=== PATIENT | female | born 1960 | race Caucasian/White ===

== ENCOUNTER → 2016-07-25 | Outpatient (CLI) | payer OTHER ==
[2016-07-25 13:29] LABS: ESTIMATED AVERAGE GLUCOSE 123 mg/dl; HA1C FLAG Normal (Normal)
[2016-07-25 13:32] LABS: BLOOD UREA NITROGEN 16 mg/dl (7-18); CALCIUM 9.6 mg/dl (8.5-10.1); CARBON DIOXIDE 30 mmol/L (21-32); CHLORIDE 104 mmol/L (98-107); CREATININE 0.96 mg/dl (0.60-1.20); GLUCOSE 102 mg/dl (70-99); POTASSIUM 3.8 mmol/L (3.5-5.1); SODIUM 141 mmol/L (136-145)
[2016-07-25 13:36] LABS: CHOLESTEROL 145 mg/dl (0-200); CHOLESTEROL/HDL RATIO 4.3; HDL CHOLESTEROL 34 mg/dl; LDL CHOLESTEROL CALCULATED 88 mg/dl; TRIGLYCERIDES 113 mg/dl (0-150); VERY LOW DENSITY LIPOPROT CALC 23 mg/dl
== END | disposition home or self-care (01) ==
LOC: C.LABPVFM 09:15
PROVIDERS: ATTEND Nurse Practitioner
DX: E78.5 Hyperlipidemia, unspecified (principal); R73.01 Impaired fasting glucose

== ENCOUNTER → 2016-08-03 | Outpatient (CLI) | payer OTHER ==
--- NOTE | 2016-08-03 13:04 | MAMMOGRAPHY REPORT ---
BILATERAL DIGITAL SCREENING MAMMOGRAM TOMOSYNTHESIS WITH CAD: 08/03/2016 CLINICAL HISTORY: Routine screening. Patient has no complaints. TECHNIQUE: Breast tomosynthesis in addition to standard 2D mammography was performed. Current study was also evaluated with a Computer Aided Detection (CAD) system. COMPARISON: Comparison is made to exams dated: 08/06/2015 mammogram, 08/02/2015 mammogram, 07/28/2014 mammogram, 07/25/2013 mammogram, 07/19/2012 mammogram, and 07/14/2011 mammogram - [facility]. BREAST COMPOSITION: There are scattered areas of fibroglandular density in both breasts. FINDINGS: No suspicious masses, calcifications, or areas of architectural distortion are noted in e ither breast. There has been no significant interval change compared to prior exams. IMPRESSION: ACR BI-RADS CATEGORY 1: NEGATIVE There is no mammographic evidence of malignancy. A 1 year screening mammogram is recommended. The p atient will receive written notification of the results. Approximately 10% of breast cancers are not detected with mammography. A negative mammographic repor t should not delay biopsy if a clinically suggestive mass is present. Amaya Summers M.D. ah/:08/03/2016 09:04:53 Signal Tester: Kailyn GAVIN(R)(M), [facility] letter sent: Normal 1/2 BI-RADS Code: ACR BI-RADS Category 1: Negative
== END | disposition home or self-care (01) ==
LOC: C.MAMM 08:24
PROVIDERS: ATTEND Obstetrics & Gynecology
DX: Z12.31 Encounter for screening mammogram for malignant neoplasm of breast (principal)

== ENCOUNTER → 2016-11-29 | Outpatient (CLI) | payer OTHER | END | disposition home or self-care (01) | LOC: C.LABPVFM 10:06 | PROVIDERS: ATTEND Family Medicine | DX: R39.9 Unspecified symptoms and signs involving the genitourinary system (principal) ==

== ENCOUNTER → 2016-12-29 | Outpatient (CLI) | payer OTHER | END | disposition home or self-care (01) | LOC: C.PAPS 11:55 | PROVIDERS: ATTEND Obstetrics & Gynecology | DX: Z12.4 Encounter for screening for malignant neoplasm of cervix (principal) ==

== ENCOUNTER → 2017-01-17 | Outpatient (CLI) | payer OTHER | END | disposition home or self-care (01) | LOC: C.LABSPEC 10:20 | PROVIDERS: ATTEND Obstetrics & Gynecology | DX: Z12.11 Encounter for screening for malignant neoplasm of colon (principal) ==

== ENCOUNTER → 2017-08-06 | Outpatient (CLI) | payer OTHER ==
[2017-08-06 13:14] LABS: BLOOD UREA NITROGEN 17 mg/dl (7-18); CALCIUM 9.6 mg/dl (8.5-10.1); CARBON DIOXIDE 31 mmol/L (21-32); CREATININE 1.01 mg/dl (0.60-1.20); GLUCOSE 107 mg/dl (70-99); POTASSIUM 3.7 mmol/L (3.5-5.1); SODIUM 139 mmol/L (136-145)
[2017-08-06 13:17] LABS: CHOLESTEROL 166 mg/dl (0-200); LDL CHOLESTEROL CALCULATED 102 mg/dl
== END | disposition home or self-care (01) ==
LOC: C.LABPVFM 09:19
PROVIDERS: ATTEND Nurse Practitioner
DX: E78.5 Hyperlipidemia, unspecified (principal); R73.01 Impaired fasting glucose

== ENCOUNTER → 2017-08-20 | Outpatient (CLI) | payer OTHER ==
--- NOTE | 2017-08-21 15:14 | MAMMOGRAPHY REPORT ---
BILATERAL DIGITAL SCREENING MAMMOGRAM TOMOSYNTHESIS WITH CAD: 08/20/2017 CLINICAL HISTORY: Routine screening. TECHNIQUE: Breast tomosynthesis in addition to standard 2D mammography was performed. Current study was also evaluated with a Computer Aided Detection (CAD) system. COMPARISON: Comparison is made to exams dated: 08/03/2016 mammogram, 08/02/2015 mammogram, 07/28/2014 m ammogram, 07/25/2013 mammogram, 07/19/2012 mammogram, and 07/14/2011 mammogram - [facility]. BREAST COMPOSITION: There are scattered areas of fibroglandular density in both breasts. FINDINGS: There is fluctuating nodularity bilaterally, most likely representing fluctuating cysts. S cattered benign punctate and rim calcifications bilaterally. No suspicious mass, architectural disto rtion or cluster of microcalcifications is seen. IMPRESSION: ACR BI-RADS CATEGORY 1: NEGATIVE There is no mammographic evidence of malignancy. A 1 year screening mammogram is recommended. The pa tient will receive written notification of the results. Approximately 10% of breast cancers are not detected with mammography. A negative mammographic report should not delay biopsy if a clinically suggestive mass is present. Mallory Hickey M.D. ay/:08/20/2017 16:54:31 Educational Aide: Kailyn GAVIN(R)(Sonia), [facility] letter sent: Normal 1/2 BI-RADS Code: ACR BI-RADS Category 1: Negative
== END | disposition home or self-care (01) ==
LOC: C.MAMM 08:31
PROVIDERS: ATTEND Obstetrics & Gynecology
DX: Z12.31 Encounter for screening mammogram for malignant neoplasm of breast (principal)

== ENCOUNTER 2020-10-26 11:13 | Observation (INO) ==
[2020-10-26] MEDS ORDERED: ONDANSETRON INJ 2 MG/ML 2 ML VIAL IV STA (12:00)
--- NOTE | 2020-10-26 12:04 | Emergency Department Note ---
Impression & Plan Abdominal pain, RUQ ED Provider Note INFORMANT: Patient ED PROVIDER(S): Osbaldo Cunningham MD CHIEF COMPLAINT: Right upper quadrant abdominal pain PLAN: Disposition: Admitted to the OR Condition: Good Outpatient prescription management: none Referral: None MEDICAL DECISION MAKING: Patient presented with right upper quadrant abdominal pain. Examination was concerning for a biliary source. The patient was treated with IV Dilaudid and Zofran. Her blood work revealed a leukocytosis and mild elevation of her bilirubin. Ultrasound imaging did show some sludge but no convincing evidence of cholecystitis. CT imaging was performed. The patient does have sludge in the gallbladder. No other pathology was noted. The patient was reexamined. She still having right upper quadrant abdominal pain rating a 5 out of 10 even after the Dilaudid. At this point general surgery was consulted. The patient was evaluated in the ER and was felt that further management surgically was necessary. The patient will be taken to the operating room for further treatment. Triage Nursing notes reviewed and agree them. Vital Signs: reviewed and remarkable for no significant abnormalities Differential diagnosis: Biliary pathology, ovarian cyst, ovarian torsion, TOA, PID, infections, diverticulitis, UTI, obstruction, mesenteric ischemia, aortic pathology, inflammatory bowel disease, renal colic, PUD, pancreatitis, hernia, volvulus, constipation, as well as other pathologies. Diagnostics interpreted by me: ECG: Rate: 81 Rhythm:Normal sinus [place]:Normal QRS:Normal ST segements:No elevation or depression Other:No PACs or PVCs Cardiac Monitoring: Cardiac monitoring ordered by me: The patient was placed on continuous cardiac monitoring and observed. It revealed a normal sinus rhythm at 82 beats per minute without ectopy or evidence of dysrhythmia. Imaging studies: Ultrasound of the gallbladder reveals sludge but no convincing evidence of cholecystitis. CT imaging of the abdomen pelvis reveals a large sludge but no other acute pa thology in the right upper quadrant. Renal stone noted. Pulmonary nodule noted however patient is low risk. Radiology recommended no additional follow-up. Patient was informed. HPI: The patient is a 60 year old female who presents to the Emergency Room with complaints of RUQ, sharp pain. This started yesterday and is worsening this morning. The patient also notes the following associated symptoms, nausea. The patient has found no relieving factors. Current pain is rated as 5/10. Pt denies LOC, headache, fevers, chills, diaphoresis, visual changes, neck pain, chest pain, breathing difficulties, vomiting, back pain, melena, hematochezia, urinary symptoms, numbness, weakness, lymphadenopathy, rash, or other complaints. ROS: See above HPI for pertinent positives & negatives. A total of 10 systems reviewed and were otherwise negative. PAST MEDICAL HISTORY:See Below , high cholesterol PAST SURGICAL HISTORY:See Below,appy FAMILY HISTORY:See Below SOCIAL HISTORY:See Below, HOME MEDICATIONS:See Below ALLERGIES:See Below VITALS:See Below PHYSICAL EXAMINATION: GENERAL: Awake, alert, uncomfortable-appearing, in no distress HENT: Normocephalic, atraumatic. Oropharynx unremarkable. EYES: Normal conjunctiva. Sclera non-icteric. NECK: Inspection normal. Non-tender. Supple. No nuchal rigidity. FROM. No masses. RESPIRATORY: Clear to auscultation. No wheezes. No rales. Normal respiratory effort. CARDIAC: Normal rate. Normal rhythm. No murmurs. No rubs. Extremities warm and well perfused. Pulses equal. No JVD. GI: Soft, non-distended. RUQ tenderness to palpation. No rebound or guarding. No masses. RECTAL: Deferred. MUSCULOSKELETAL: Atraumatic. Chest examination reveals no tenderness. The back is symmetrical on inspection without obvious abnormality. There is no CVA tenderness to palpation. No joint edema. LOWER EXTREMITIES: Calves are equal size bilaterally and non-tender. No edema. No discoloration. NEURO: Normal sensorium. No sensory or motor deficits noted. SKIN: No rash or jaundice noted. Osbaldo Cunningham MD Past Med/Surg History Medical History Nonrheumatic mitral valve insufficiency Surgical History H/O laparoscopy History of hysterectomy, supracervical Hx of salpingo-oophorectomy, bilateral S/P appendectomy Family History Other Coronary heart disease Denies family history of Ovarian cancer Prostate cancer Myocardial infarction Breast cancer Colorectal cancer Social History Smoking Status: Never smoker Hx Alcohol Use: No Hx Substance Use: No Preferred Language: Tunisian marital status: Current Living Situation: Spouse current occupational status: employed How many Children do You have: 2 Feels Safe at Home: Yes Childhood Exposure to Second-Hand Smoke: No Dental Care, Regularly: Yes Physical Activity Frequency: 3-4 Times per Week Seatbelt Use: always Sunscreen Use: Yes Allergies Allergies Allergy/AdvReac Type Severity Reaction Status Date / Time No Known Allergies Allergy Verified 10/26/20 14:11 Home Meds Home Medications Medication Instructions Recorded Confirmed calcium citrate 500 mg (2,376 mg) 500 mg PO DAILY 07/30/19 10/26/20 effervescent tablet multivitamin 1 tab PO DAILY 07/30/19 10/26/20 omega-3 fatty acids 1,000 mg 1,000 mg PO DAILY 07/30/19 10/26/20 capsule Previous Rx's Medication Instructions Recorded atorvastatin 40 mg tablet 40 mg PO DAILY #30 tab 03/04/20 Results & Data (ED) Vital Signs Vital Signs - 24 hr 10/26/20 11:21 10/26/20 11:51 10/26/20 12:13 Temperature 37.0 C Temperature Source Temporal Artery Scan Pulse Rate 79 Pulse Rate [Right] 85 Pulse Rate from SpO2 Sensor Pulse Rhythm [Right] Regular Pulse Strength [Right] Normal Respiratory Rate 14 18 Respiratory Effort / Characteristics Non-Labored Spontaneous Non-Labored Respiratory Depth Normal Normal Blood Pressure 196/74 H Blood Pressure [Right Arm] 187/68 H Blood Pressure Mean 114 Blood Pressure Mean [Right Arm] 107 Blood Pressure Position [Right Arm] Lying Pulse Oximetry 97 98 96 Oxygen Delivery Method Room Air Room Air Room Air Sepsis New/Unexplained Change in Mental Status N/A Sepsis Action Taken by Nursing No Action Required 10/26/20 12:30 10/26/20 13:08 10/26/20 13:30 Temperature Temperature Source Pulse Rate 75 83 83 Pulse Rate [Right] Pulse Rate from SpO2 Sensor 76 82 84 Pulse Rhythm [Right] Pulse Strength [Right] Respiratory Rate 21 16 21 Respiratory Effort / Characteristics Respiratory Depth Blood Pressure 181/87 H 169/106 H 175/68 H Blood Pressure [Right Arm] Blood Pressure Mean 118 127 103 Blood Pressure Mean [Right Arm] Blood Pressure Position [Right Arm] Pulse Oximetry 95 96 94 Oxygen Delivery Method Sepsis New/Unexplained Change in Mental Status Sepsis Action Taken by Nursing 10/26/20 14:00 10/26/20 14:30 10/26/20 15:00 Temperature Temperature Source Pulse Rate 79 74 82 Pulse Rate [Right] Pulse Rate from SpO2 Sensor 81 78 83 Pulse Rhythm [Right] Pulse Strength [Right] Respiratory Rate 19 13 14 Respiratory Effort / Characteristics Respiratory Depth Blood Pressure 199/70 H 179/63 H 187/69 H Blood Pressure [Right Arm] Blood Pressure Mean 113 101 108 Blood Pressure Mean [Right Arm] Blood Pressure Position [Right Arm] Pulse Oximetry 98 97 97 Oxygen Delivery Method Sepsis New/Unexplained Change in Mental Status Sepsis Action Taken by Nursing Laboratory Data Result diagrams: 10/26/20 12:07 10/26/20 13:20 Lab Results 10/26/20 10/26/20 10/26/20 Range/Units 12:07 12:07 12:15 WBC 13.05 H (4.8-10.8) K/uL RBC 5.60 H (4.2-5.4) M/uL Hgb 15.2 (12.0-16.0) g/dL Hct 46.1 (37-47) % MCV 82.3 (80-100) fL MCH 27.1 (25-34) pg MCHC 33.0 (32-36) g/dL RDW Std Deviation 39.9 (36.4-46.3) fL RDW Coeff of Nikolay 13.2 (11.5-14.5) % Plt Count 282 (130-400) K/uL MPV 9.4 (7.4-10.4) fL Immature Gran % (Auto) 0.5 % Neut % (Auto) 73.1 % Lymph % (Auto) 14.2 % [place] % (Auto) 11.0 % Eos % (Auto) 1.0 % Baso % (Auto) 0.2 % Neut # (Auto) 9.55 H (1.4-6.5) K/uL Lymph # (Auto) 1.85 (1.2-3.4) K/uL [place] # (Auto) 1.43 H (0.11-0.59) K/uL Eos # (Auto) 0.13 (0-0.5) K/uL Baso # (Auto) 0.03 (0-0.2) K/uL Immature Gran # (Auto) 0.06 H (0.00-0.02) K/uL Sodium 137 (136-145) mmol/L Potassium (3.5-5.1) mmol/L Chloride 104 (98-107) mmol/L Carbon Dioxide 29 (21-32) mmol/L Anion Gap 4.0 (3-11) BUN 15 (7-18) mg/dl Creatinine 0.90 (0.6-1.2) mg/dl Est Cr Clr Drug Dosing 77.3 ml/min Est GFR ( Amer) 79.4 ml/min Est GFR (Non-Af Amer) 68.5 ml/min BUN/Creatinine Ratio 16.9 (10-20) Glucose 112 H (70-99) mg/dl Calcium 10.0 (8.5-10.1) mg/dl Total Bilirubin 1.3 H (0.2-1) mg/dl AST (15-37) U/L ALT 46 (12-78) U/L Alkaline Phosphatase 30 L (45-117) U/L Total Protein 8.1 (6.4-8.2) gm/dl Albumin 4.2 (3.4-5.0) gm/dl Globulin 3.9 (2.5-4.0) gm/dl Albumin/Globulin Ratio 1.1 (0.9-2) Lipase 121 (73-393) U/L Specimen Hemolysis Urine Color Yellow Urine Appearance Cloudy A (Clear) Urine pH 7.0 (4.5-7.5) Ur Specific Christmas 1.018 (1.000-1.030) Urine Protein Negative (Negative) Urine Glucose (UA) Negative (Negative) Urine Ketones Negative (Negative) Urine Blood Negative (Negative) Urine Nitrite Negative (Negative) Urine Bilirubin Negative (Negative) Urine Urobilinogen Negative (Negative) Ur Leukocyte Esterase Negative (Negative) Urine WBC (Auto) 1-5 (0-5) /hpf Urine RBC (Auto) 5-10 H (0-4) /hpf U Hyaline Cast (Auto) 1-5 (0-5) /lpf U Epithel Cells (Auto) 20-30 H (0-5) /lpf Urine Bacteria (Auto) Negative (Negative) 10/26/ Range/Units 13:20 WBC (4.8-10.8) K/uL RBC (4.2-5.4) M/uL Hgb (12.0-16.0) g/dL Hct (37-47) % MCV (80-100) fL MCH (25-34) pg MCHC (32-36) g/dL RDW Std Deviation (36.4-46.3) fL RDW Coeff of Nikolay (11.5-14.5) % Plt Count (130-400) K/uL MPV (7.4-10.4) fL Immature Gran % (Auto) % Neut % (Auto) % Lymph % (Auto) % [place] % (Auto) % Eos % (Auto) % Baso % (Auto) % Neut # (Auto) (1.4-6.5) K/uL Lymph # (Auto) (1.2-3.4) K/uL [place] # (Auto) (0.11-0.59) K/uL Eos # (Auto) (0-0.5) K/uL Baso # (Auto) (0-0.2) K/uL Immature Gran # (Auto) (0.00-0.02) K/uL Sodium (136-145) mmol/L Potassium 3.8 (3.5-5.1) mmol/L Chloride (98-107) mmol/L Carbon Dioxide (21-32) mmol/L Anion Gap (3-11) BUN (7-18) mg/dl Creatinine (0.6-1.2) mg/dl Est Cr Clr Drug Dosing ml/min Est GFR ( Amer) ml/min Est GFR (Non-Af Amer) ml/min BUN/Creatinine Ratio (10-20) Glucose (70-99) mg/dl Calcium (8.5-10.1) mg/dl Total Bilirubin (0.2-1) mg/dl AST 21 (15-37) U/L ALT (12-78) U/L Alkaline Phosphatase (45-117) U/L Total Protein (6.4-8.2) gm/dl Albumin (3.4-5.0) gm/dl Globulin (2.5-4.0) gm/dl Albumin/Globulin Ratio (0.9-2) Lipase (73-393) U/L Specimen Hemolysis Urine Color Urine Appearance (Clear) Urine pH (4.5-7.5) Ur Specific [place] (1.000-1.030) Urine Protein (Negative) Urine Glucose (UA) (Negative) Urine Ketones (Negative) Urine Blood (Negative) Urine Nitrite (Negative) Urine Bilirubin (Negative) Urine Urobilinogen (Negative) Ur Leukocyte Esterase (Negative) Urine WBC (Auto) (0-5) /hpf Urine RBC (Auto) (0-4) /hpf U Hyaline Cast (Auto) (0-5) /lpf U Epithel Cells (Auto) (0-5) /lpf Urine Bacteria (Auto) (Negative) Administered Medications Hydromorphone HCl (Hydromorphone Inj 0.5 Mg/0.5 Ml Syr) 0.5 mg IV Q15M PRN PRN Reason: Pain Stop: 11/09/20 11:59 Last Admin: 10/26/20 12:10 Dose: 0.5 mg Documented by: [id number] Discontinued Medications Ioversol (Optiray 320 100ml) 94 ml IV ONCE ONE Stop: 10/26/20 13:44 Last Admin: 10/26/20 13:43 Dose: 94 ml Documented by: [id number] Ondansetron HCl (Ondansetron Inj 2 Mg/Ml 2 Ml Vial) 4 mg IV NOW STA Stop: 10/26/20 12:01 Last Admin: 10/26/20 12:10 Dose: 4 mg Documented by: [id number] Imaging Data Radiologist's Impression: Gallbladder Ultrasound 10/26/20 12:01 US gallbladder HISTORY: 60 years-old Female RUQ abd pain acute right upper quadrant abdominal pain COMPARISON: None TECHNIQUE: Multiple real-time sonographic images of the abdominal right upper quadrant were obtained assessing grayscale appearance, and color flow FINDINGS: Limited exam secondary to patient body habitus and obscuring bowel gas. Increased echogenicity of the liver. No hepatic mass. Trace amount of gallbladd er sludge. No shadowing cholelithiasis or pericholecystic fluid. No gallbladder wall thickening. Normal common bile duct, 5 mm. Imaged right kidney is unremarkable without hydronephrosis. A 6 mm nonshadowing echogenic lesion of the superior pole right kidney is suggestive of a probable angiomyolipoma. IMPRESSION: 1. Trace gallbladder sludge. No cholelithiasis or sonographic evidence of acute cholecystitis. 2. Echogenic liver suggestive of hepatic steatosis. ACT 112: Negative or not required by law. The above report was generated using voice recognition software. It may contain grammatical, syntax or spelling errors. Electronically signed by: Ihsan Peugero M.D. 10/26/2020 1:11 PM Abdomen/Pelvis CT 10/26/20 13:20 CT abd pelvis IV con only CLINICAL HISTORY: Right upper quadrant abdominal pain and elevated white count. NAUSEA. COMPARISON STUDY: Biliary ultrasound dated 10/26/2020 TECHNIQUE: The patient was scanned in a dynamic helical fashion during intravenous administration of 94 cc of Optiray 320 A dose lowering technique was utilized adhering to the principles of ALARA. CT DOSE: 1035.75 mGy.cm FINDINGS: Lower chest: There are bibasilar parenchymal opacities statistically atelectatic. There is a 6 mm solid right lower lobe pulmonary nodule as visualized image #23 sequence 3. On the same slice is a 6 x 3 mm solid pulmonary nodule. In an average risk patient, no further follow-up is indicated. Liver: There is borderline hepatic steatosis. No focal hepatic masses are visualized. The hepatic and portal veins appear patent. Gallbladder: The gallbladder is of normal size. There is minimal layering of the bile. No calcified gallbladder calculi are visualized. There is no wall thickening. Spleen: Borderline enlarged measuring 12.3 cm. There is a nonspecific 5 mm splenic hypodensity. Pancreas: Unremarkable. Adrenal glands: Unremarkable. Kidneys: There is a nonobstructing 2.5 mm upper pole right renal calcification. There are bilateral hypodense renal lesions, statistically representing cysts. There is no hydronephrosis. Bowel: There are no transition zones indicate bowel obstruction. There is colonic diverticulosis. There is no evidence of acute diverticulitis. By history the appendix is surgically absent. Peritoneum: There is no intraperitoneal free air or abdominal ascites. There is a small fat-containing umbilical hernia, and small fat-containing paraumbilical hernia. Vasculature: The abdominal aorta is normal in course and caliber. Adenopathy: None. Pelvic viscera: The uterus is surgically absent. Skeletal structures: No destructive skeletal lesions are visualized. Degenerative changes are present within the hips. IMPRESSION: 1. No acute intra-abdominal or pelvic findings 2. No evidence of bowel structure. No evidence of free air 2. No acute inflammatory changes 4. Diverticulosis. No evidence of acute diverticulitis 5. Borderline splenic enlargement. Nonspecific 5 mm splenic hypodensity 6. Right lung pulmonary nodules measuring up to 6 mm. In an average risk patient, no further follow-up is indicated 7. Nonobstructing 2.5 mm upper pole right renal calcification. Bilateral hypodense renal lesions likely representing cysts 8. Fat-containing umbilical and paraumbilical hernia. ACT 112: Negative or not required by law. Electronically signed by: Domo Taylor M.D. 10/26/2020 2:02 PM Discharge Plan Visit Data Chief Complaint: Abdominal Pain Stated Complaint: PAIN ON RIGHT SIDE- UNDER RIBS, NAUSEA ED Provider: Osbaldo Cunningham Discharge Problem: Abdominal pain, RUQ Forms Stand Alone Forms: My [facility] [employer] Prescriptions Prescriptions: No Action atorvastatin 40 mg tablet 40 mg PO DAILY Qty: 30 RF: 11 calcium citrate 500 mg tablet, effervescent 500 mg PO DAILY RF: 0 omega-3 fatty acids [Fish Oil Concentrate] 1,000 mg capsule 1,000 mg PO DAILY RF: 0 multivitamin [Multiple Vitamins] Tablet 1 tab PO DAILY RF: 0
[2020-10-26] MEDS: HYDROmorphone INJ 0.5 MG/0.5 ML SYR IV PRN ×2 (12:10→17:57)
[2020-10-26 12:16] LABS: Basophils # (auto) 0.03 K/uL (0-0.2); Basophils % (auto) 0.2 %; Eosinophils # (auto) 0.13 K/uL (0-0.5); Hematocrit (blood only) 46.1 % (37-47); Hemoglobin 15.2 g/dL (12.0-16.0); Immature Granulocytes # (auto) 0.06 K/uL (0.00-0.02); Immature Granulocytes % (auto) 0.5 %; Lymphocytes # (auto) 1.85 K/uL (1.2-3.4); Lymphocytes % (auto) 14.2 %; Mean Corpuscular Hemoglobin 27.1 pg (25-34); Mean Corpuscular Volume 82.3 fL (80-100); Mean Platelet Volume 9.4 fL (7.4-10.4); Monocytes # (auto) 1.43 K/uL (0.11-0.59); Neutrophils # (auto) 9.55 K/uL (1.4-6.5); Neutrophils % (auto) 73.1 %; Platelet Count 282 K/uL (130-400); RDW Coefficient of Variation 13.2 % (11.5-14.5); RDW Standard Deviation 39.9 fL (36.4-46.3); White Blood Count 13.05 K/uL (4.8-10.8)
[2020-10-26 12:26] LABS: Appearance Urine Cloudy (Clear); Bacteria Urine Automated Negative (Negative); Bilirubin Urine Negative (Negative); Blood Urine Negative (Negative); Color Urine Yellow; Epithelial Cell Urine Auto 20-30 /lpf (0-5); Glucose Urine UA Negative (Negative); Ketones Urine Negative (Negative); Leukocyte Esterase Urine Negative (Negative); Nitrite Urine Negative (Negative); Protein Urine Negative (Negative); Specific Gravity Urine 1.018 (1.000-1.030); Urobilinogen Urine Negative (Negative)
[2020-10-26 12:47] LABS: Albumin Globulin Ratio 1.1 (0.9-2); Albumin Level 4.2 gm/dl (3.4-5.0); BUN Creatinine Ratio 16.9 (10-20); Bilirubin,Total 1.3 mg/dl (0.2-1); Creatinine Clr Calc Pharmacy 77.3 ml/min; Est GFR (African American) 79.4 ml/min; Est GFR (Non-African American) 68.5 ml/min; Globulin 3.9 gm/dl (2.5-4.0); Total Protein 8.1 gm/dl (6.4-8.2)
--- NOTE | 2020-10-26 13:13 | Ultrasound Report ---
US gallbladder HISTORY: 60 years-old Female RUQ abd pain acute right upper quadrant abdominal pain COMPARISON: None TECHNIQUE: Multiple real-time sonographic images of the abdominal right upper quadrant were obtained assessing grayscale appearance, and color flow FINDINGS: Limited exam secondary to patient body habitus and obscuring bowel gas. Increased echogenicity of the liver. No hepatic mass. Trace amount of gallbladder sludge. No shadowing cholelithiasis or perichole cystic fluid. No gallbladder wall thickening. Normal common bile duct, 5 mm. Imaged right kidney is unremarkable without hydronephrosis. A 6 mm nonshadowing echogenic lesion of t he superior pole right kidney is suggestive of a probable angiomyolipoma. IMPRESSION: 1. Trace gallbladder sludge. No cholelithiasis or sonographic evidence of acute cholecystitis. 2. Echogenic liver suggestive of hepatic steatosis. ACT 112: Negative or not required by law. The above report was generated using voice recognition software. It may contain grammatical, syntax o r spelling errors. Electronically signed by: Ihsan Peguero M.D. 10/26/2020 1:11 PM
[2020-10-26] MEDS ORDERED: OPTIRAY 320 100ml IV ONE (13:43)
[2020-10-26 14:02] LABS: Potassium 3.8 mmol/L (3.5-5.1)
--- NOTE | 2020-10-26 14:04 | CT Scan Report ---
CT abd pelvis IV con only CLINICAL HISTORY: Right upper quadrant abdominal pain and elevated white count. NAUSEA. COMPARISON STUDY: Biliary ultrasound dated 10/26/2020 TECHNIQUE: The patient was scanned in a dynamic helical fashion during intravenous administration of 94 cc of Optiray 320 A dose lowering technique was utilized adhering to the principles of ALARA. CT DOSE: 1035.75 mGy.cm FINDINGS: Lower chest: There are bibasilar parenchymal opacities statistically atelectatic. There is a 6 mm karen id right lower lobe pulmonary nodule as visualized image #23 sequence 3. On the same slice is a 6 x 3 mm solid pulmonary nodule. In an average risk patient, no further follow-up is indicated. Liver: There is borderline hepatic steatosis. No focal hepatic masses are visualized. The hepatic and portal veins appear patent. Gallbladder: The gallbladder is of normal size. There is minimal layering of the bile. No calcified g allbladder calculi are visualized. There is no wall thickening. Spleen: Borderline enlarged measuring 12.3 cm. There is a nonspecific 5 mm splenic hypodensity. Pancreas: Unremarkable. Adrenal glands: Unremarkable. Kidneys: There is a nonobstructing 2.5 mm upper pole right renal calcification. There are bilateral h ypodense renal lesions, statistically representing cysts. There is no hydronephrosis. Bowel: There are no transition zones indicate bowel obstruction. There is colonic diverticulosis. The re is no evidence of acute diverticulitis. By history the appendix is surgically absent. Peritoneum: There is no intraperitoneal free air or abdominal ascites. There is a small fat-containin g umbilical hernia, and small fat-containing paraumbilical hernia. Vasculature: The abdominal aorta is normal in course and caliber. Adenopathy: None. Pelvic viscera: The uterus is surgically absent. Skeletal structures: No destructive skeletal lesions are visualized. Degenerative changes are present within the hips. IMPRESSION: 1. No acute intra-abdominal or pelvic findings 2. No evidence of bowel structure. No evidence of free air 2. No acute inflammatory changes 4. Diverticulosis. No evidence of acute diverticulitis 5. Borderline splenic enlargement. Nonspecific 5 mm splenic hypodensity 6. Right lung pulmonary nodules measuring up to 6 mm. In an average risk patient, no further follow-u p is indicated 7. Nonobstructing 2.5 mm upper pole right renal calcification. Bilateral hypodense renal lesions like ly representing cysts 8. Fat-containing umbilical and paraumbilical hernia. ACT 112: Negative or not required by law. Electronically signed by: Domo Taylor M.D. 10/26/2020 2:02 PM
--- NOTE | 2020-10-26 15:07 | History & Physical Report ---
Date of Service October 26, 2020 Assessment & Plan (1) Acute cholecystitis: Will admit for IV meds overnight and plan for laparoscopic cholecystectomy with IOC in the morning. Repeat LFTs in the morning also. History of Present Illness Primary Care Provider: HOLLY Mahmood 60 y/o female with RUQ pain that began after eating cereal for breakfast yesterday. She had pain during the day but was eating. Pain was more severe this morning and had some nausea. Came to the ED and symptoms persist despite medication. Avoids spicy foods but no other symptoms prior to this. Allergies Allergy/AdvReac Type Severity Reaction Status Date / Time No Known Allergies Allergy Verified 10/26/20 14:11 Home Medications Medication Instructions Recorded Confirmed Type calcium citrate 500 mg (2,376 mg) 500 mg PO DAILY 07/30/19 10/26/20 History effervescent tablet multivitamin 1 tab PO DAILY 07/30/19 10/26/20 History omega-3 fatty acids 1,000 mg 1,000 mg PO DAILY 07/30/19 10/26/20 History capsule atorvastatin 40 mg tablet 40 mg PO DAILY #30 tab 03/04/20 10/26/20 Rx Past Med/Surg History Medical History Nonrheumatic mitral valve insufficiency Surgical History H/O laparoscopy History of hysterectomy, supracervical Hx of salpingo-oophorectomy, bilateral S/P appendectomy Family History Other Coronary heart disease Denies family history of Ovarian cancer Prostate cancer Myocardial infarction Breast cancer Colorectal cancer Social History Smoking Status: Never smoker Hx Alcohol Use: No Hx Substance Use: No Preferred Language: Japanese marital status: Current Living Situation: Spouse current occupational status: employed How many Children do You have: 2 Feels Safe at Home: Yes Childhood Exposure to Second-Hand Smoke: No Dental Care, Regularly: Yes Physical Activity Frequency: 3-4 Times per Week Seatbelt Use: always Sunscreen Use: Yes Review of Systems Constitutional: no fever, no chills and no anorexia Respiratory: no cough and no dyspnea Cardiovascular: no chest pain Gastrointestinal: + abdominal pain and + nausea; no heartburn and no vomiting Physical Exam Constitutional: WD/WN, vitals as above well developed and well nourished Respiratory: normal respiratory effort, lungs clear to auscultation Cardiovascular: RRR, no murmur, no edema Gastrointestinal (Abdomen): Inspection/Auscultation: + abdominal surgical scar; abdomen not distended Percussion/Palpation: + abdomen tender (RUQ) and abdomen soft; no guarding Results & Data Results & Data ([facility]) Vital Signs (Past 12 Hours) Vital Signs Temp Pulse Pulse Resp BP BP Pulse Ox 10/26/20 14:30 74 13 179/63 H 97 10/26/20 14:00 79 19 199/70 H 98 10/26/20 13:30 83 21 175/68 H 94 10/26/20 13:08 83 16 169/106 H 96 10/26/20 12:30 75 21 181/87 H 95 10/26/20 12:13 96 10/26/20 11:51 85 18 187/68 H 98 10/26/20 11:21 37.0 C 79 14 196/74 H 97 Supervising Physician Co-Signing Physician Notes As per physician financial administrative assistant patient resting comfortably at this time minimal right upper quadrant guarding her had gone home Examined patient approximately 6:00 went over the laboratory chemical findings imaging and plan for surgery in the morning with the laparoscopic cholecystectomy cholangiogram possible open Risks and complications surgery explained including bleeding infection converting to open procedure and anticipated recovery time All questions were answered PG Care Time/CCT Total # of Minutes Spent Total Time Spent with Patient: Total time spent is greater than 50% in coordination of care (as documented) at patient's floor/unit and/or counseling patient: Coding Level of Care Code 84712 Initial Inpt Care Lvl 1 Diagnoses Acute cholecystitis K81.0
--- NOTE | 2020-10-26 18:31 | Electrocardiogram Report ---
Test Reason : Blood Pressure : / mmHG Vent. Rate : 081 BPM Atrial Rate : 081 BPM P-R Int : 152 ms QRS Dur : 098 ms QT Int : 360 ms P-R-T Axes : 037 -22 023 degrees QTc Int : 418 ms Normal sinus rhythm Normal ECG No previous ECGs available Confirmed by Fran Cruz ([id number]) on 10/26/2020 6:31:07 PM Referred By: REFERRED SELF Confirmed By:Michael Cruz
[2020-10-26] MEDS ORDERED: cefTRIAXone SODIUM 1,000 MG in DEXTROSE 5% 50 ML IV SCH (19:15)
[2020-10-26] MEDS ORDERED: oxyCODONE/ACETAMINOPHEN 5mg/325mg TAB PO PRN ×2 (19:15)
[2020-10-26] MEDS ORDERED: MoRPHine SULFATE 4 MG/ML 1 ML CARP\\VIAL IV PRN (19:15)
[2020-10-26] MEDS ORDERED: ONDANSETRON INJ 2 MG/ML 2 ML VIAL IV PRN (19:15)
[2020-10-26] MEDS ORDERED: MoRPHine SULFATE 2 MG/ML CARP IV PRN (19:15)
--- NOTE | 2020-10-26 19:25 | Anesthesiology Consultation ---
Date of Service October 26, 2020 Assessment & Plan (1) Encounter for pre-operative examination: Chart Review Chart Review: entry tech initiated History Surgery Operation Date: 10/27/20 07:00 Proposed Procedures p Laparoscopic Cholecystectomy with Cholangiogram - Luis E Tovar MD, FACS Height/Weight Height: 5 ft 6 in Weight: 99.9 kg Allergies Allergy/AdvReac Type Severity Reaction Status Date / Time No Known Allergies Allergy Verified 10/26/20 14:11 Medications Home Medications Medication Instructions Recorded Confirmed Last Taken calcium citrate 500 mg (2,376 mg) 500 mg PO DAILY 07/30/19 10/26/20 Unknown effervescent tablet multivitamin 1 tab PO DAILY 07/30/19 10/26/20 Unknown omega-3 fatty acids 1,000 mg 1,000 mg PO DAILY 07/30/19 10/26/20 Unknown capsule atorvastatin 40 mg tablet 40 mg PO DAILY #30 tab 03/04/20 10/26/20 Unknown Past Medical History Medical History Nonrheumatic mitral valve insufficiency Past Family History Family History Other Coronary heart disease Denies family history of Ovarian cancer Prostate cancer Myocardial infarction Breast cancer Colorectal cancer Past Surgical History Surgical History H/O laparoscopy History of hysterectomy, supracervical Hx of salpingo-oophorectomy, bilateral S/P appendectomy Social History Smoking Status: Never smoker Hx Alcohol Use: No Hx Substance Use: No Physical Exam Vital Signs Last Vital Signs Temp 98.6 F 10/26/20 11:21 Pulse 80 10/26/20 17:30 Resp 17 10/26/20 17:30 BP 173/73 H 10/26/20 17:30 Pulse Ox 95 10/26/20 17:30 Lab Results Anesthesia Preop Results Results Anesthesia Widget: WBC 13.05 K/uL (4.8-10.8) H 10/26/20 Hgb 15.2 g/dL (12.0-16.0) 10/26/20 Hct 46.1 % (37-47) 10/26/20 Plt 282 K/uL (130-400) 10/26/20 Na 137 mmol/L (136-145) 10/26/20 K 3.8 mmol/L (3.5-5.1) 10/26/20 Cl 104 mmol/L (98-107) 10/26/20 CO2 29 mmol/L (21-32) 10/26/20 BUN 15 mg/dl (7-18) 10/26/20 Creat 0.90 mg/dl (0.6-1.2) 10/26/20 Glucose Level 112 mg/dl (70-99) H 10/26/20 COVID-19 PCR NEGATIVE (Negative) 10/26/20 Testing Laboratory Results 10/26/20 12:07 10/26/20 13:20 Urine Color Yellow 10/26/20 12:15 Urine Appearance Cloudy (Clear) A 10/26/20 12:15 Urine pH 7.0 (4.5-7.5) 10/26/20 12:15 Ur Specific [place] 1.018 (1.000-1.030) 10/26/20 12:15 Urine Protein Negative (Negative) 10/26/20 12:15 Urine Glucose (UA) Negative (Negative) 10/26/20 12:15 Urine Ketones Negative (Negative) 10/26/20 12:15 Urine Nitrite Negative (Negative) 10/26/20 12:15 Ur Leukocyte Esterase Negative (Negative) 10/26/20 12:15 Urine WBC (Auto) 1-5 /hpf (0-5) 10/26/20 12:15 Urine RBC (Auto) 5-10 /hpf (0-4) H 10/26/20 12:15 U Hyaline Cast (Auto) 1-5 /lpf (0-5) 10/26/20 12:15 U Epithel Cells (Auto) 20-30 /lpf (0-5) H 10/26/20 12:15 Urine Bacteria (Auto) Negative (Negative) 10/26/20 12:15 Electrocardiogram Date: 10/26/20 Findings: + NSR @ (81 bpm)
[2020-10-26] MEDS ORDERED: PIPERACILL/TAZOBAC CONSULT ACTIVE PRN (19:31)
[2020-10-26] MEDS ORDERED: PIPERACILLIN/TAZOBACTAM 4.5 GM in DEXTROSE 5% 100 ML IV ONE (19:45)
[2020-10-26] MEDS: SODIUM CHLORIDE 0.9% 1000ML 1,000 ML IV SCH (20:39)
[2020-10-26] MEDS: PIPERACILLIN/TAZOBACTAM 3.375 GM in DEXTROSE 5% 100 ML IV SCH (23:31)
[2020-10-27] MEDS: SODIUM CHLORIDE 0.9% 1000ML 1,000 ML IV SCH (06:07)
[2020-10-27 06:38] LABS: Basophils # (auto) 0.03 K/uL (0-0.2); Basophils % (auto) 0.2 %; Eosinophils # (auto) 0.19 K/uL (0-0.5); Eosinophils % (auto) 1.5 %; Hematocrit (blood only) 45.2 % (37-47); Hemoglobin 14.6 g/dL (12.0-16.0); Immature Granulocytes # (auto) 0.04 K/uL (0.00-0.02); Immature Granulocytes % (auto) 0.3 %; Lymphocytes # (auto) 2.12 K/uL (1.2-3.4); Lymphocytes % (auto) 16.5 %; Mean Corpuscular Hemoglobin 27.3 pg (25-34); Mean Corpuscular Hgb Conc 32.3 g/dL (32-36); Mean Corpuscular Volume 84.6 fL (80-100); Mean Platelet Volume 9.2 fL (7.4-10.4); Monocytes # (auto) 1.84 K/uL (0.11-0.59); Monocytes % (auto) 14.3 %; Neutrophils # (auto) 8.65 K/uL (1.4-6.5); Neutrophils % (auto) 67.2 %; Platelet Count 293 K/uL (130-400); RDW Coefficient of Variation 13.5 % (11.5-14.5); RDW Standard Deviation 41.9 fL (36.4-46.3); Red Blood Count 5.34 M/uL (4.2-5.4); White Blood Count 12.87 K/uL (4.8-10.8)
[2020-10-27] MEDS ORDERED: fentaNYL citrate 100 MCG/2 ML VIAL ONE (06:45)
[2020-10-27] MEDS ORDERED: MIDAZOLAM HCL 1 MG/ML 2ML VIAL ONE (06:45)
[2020-10-27] MEDS ORDERED: LIDOCAINE/EPINEPHRINE 1% 20 ML VIAL ONE (06:50)
[2020-10-27 07:09] LABS: Albumin Level 3.7 gm/dl (3.4-5.0); Bilirubin Direct 0.2 mg/dl (0-0.2); Calcium 9.1 mg/dl (8.5-10.1); Creatinine Clr Calc Pharmacy 76.3 ml/min; Est GFR (African American) 78.4 ml/min; Est GFR (Non-African American) 67.6 ml/min; Potassium 3.5 mmol/L (3.5-5.1)
[2020-10-27 07:11] LABS: Bilirubin,Total 1.6 mg/dl (0.2-1)
--- NOTE | 2020-10-27 07:27 | History & Physical Bridge Note ---
Date of Service October 27, 2020 History & Physical Bridge Note I have examined the patient, reviewed the History & Physical and in the interval since the performance of the History & Physical I have noted the following changes of clinical significance: no changes noted Still some discomfort in right upper quadrant exam unchanged we will proceed with lap byron cholangiogram permit signed we will call her after the procedure have the nurses call him now to tell him that the patient will be going to surgery soon
[2020-10-27] MEDS ORDERED: SUGAMMADEX SODIUM 200 MG/2 ML VIAL IV ONE (07:34)
[2020-10-27] MEDS ORDERED: ACETAMINOPHEN 1000 MG/100 ML IV IV ONE (07:34)
--- NOTE | 2020-10-27 08:34 | Post Operative Brief Note ---
PG Immediate Post Op with CF Date of Surgery October 27, 2020 Pre & Post Diagnosis Operation Date: 10/27/20 07:00 Pre-Op Diagnosis: Acute Cholecystitis Post-Op Diagnosis: Acute Cholecystitis I identified the patient and participated in the time-out.: Yes Procedure Operation Date: 10/27/20 07:00 Actual Procedures p Laparoscopic Cholecystectomy with Cholangiogram, resection of infarcted omentum(Not Applicable) - Luis E Tovar MD, FACS Surgeon Luis E Tovar MD, FACS Co Founder & Ceo b loly truong Estimated Blood Loss 5 Findings Consistent with Post-Op Diagnosis Specimens Specimen Description: A: gallbladder and contents, part of omentum
[2020-10-27] MEDS ORDERED: OPTIRAY 300 INJ ONE (08:35)
--- NOTE | 2020-10-27 08:49 | Operative Report ---
PG Post Operative Report Pre & Post Diagnosis Operation Date: 10/27/20 07:00 Pre-Op Diagnosis: Acute Cholecystitis Post-Op Diagnosis: Acute Cholecystitis infarcted omentum I identified the patient and participated in the time-out.: Yes Procedure Operation Date: 10/27/20 07:00 Actual Procedures p Laparoscopic Cholecystectomy with Cholangiogram, resection of infarcted omentum(Not Applicable) Partial omentectomy- Luis E Tovar MD, FACS The patient was brought into the operating theater general trach anesthesia supine position the abdomen was prepped Betadine solution properly draped a timeout was had patient was identified made a small incision linearly above the umbilicus approximately quarter of an inch and 1/2 inch long we dissected down to the abdominal wall bulge with Jose Martin clamp was used to elevate the wall small opening abdominal wall was made 0 Vicryl suture stay sutures we then entered the peritoneal cavity with a hemostat on direct visualization followed by 5 mm trocar low insufflation pressures stay sutures were used to control pneumoperitoneum followed by the camera visualize the right upper quadrant area interestingly saw an area on the omentum that looked ischemic sales representative graphic art of what it looked like a infarcted omentum the area was about 2 cm or so in size this point on direct visualization we were able to place a 5 mm epigastric and 2 5 mm subcostal ports with preemptive local analgesic gallbladder did not extend over the edge of the liver we were able to grab with the lateral port elevated it was tense therefore I aspirated and controlled the aspirating opening with a grasper and patient in reverse Trendelenburg turned to the left were able to dissect down towards the neck of the gallbladder identified the cystic duct we created a window between that and the artery used a 5 mm clips to take it clipped the right at the takeoff of the cystic duct small opening cystic duct was made #4 urethral catheter transversing the abdominal wall position of the cystic duct x-rays were taken showed free flow duodenum no obstruction Cholangiocath was removed cystic duct was doubly clipped and divided the artery similarly encircled and clipped proximally twice once distally and divided the gallbladder was taken out in antegrade fashion using scissors and cautery small opening gallbladder was made some bile did come out there were no stones obviously patient did not have any major stones to sludge once the gallbladder was completely from the liver we checked the hemostasis in the gallbladder fossa and appears satisfactory at this point we grabbed the infarcted area of the omentum and use 5 mm clips proximal to the infarcted area divided and removed the area placed in an Endopouch at the same place and time as we have placed the gallbladder and these were both taken out through the epigastric port site subhepatic suprahepatic area was checked for stasis appears satisfactory we then placed the camera right upper port visualize her initial entry into the abdominal cavity patient did have a small hernia with some incarcerated fat below in the umbilical area we left that alone we did try to inspect the rest of the abdomen there was no other evidence of any other infarcted area of the omentum individual trochars were taken out under direct visualization last the umbilical trocar stay sutures were tied to close the fascia 4-0 Monocryl Steri- Strips applied procedure was tolerated well by the patient estimated blood loss 5 cc addendum Oscar truong was present throughout the procedure and helped the retraction exposure and wound closure Surgeon Luis E Tovar MD, FACS Airline Transport Pilot oscar truong Estimated Blood Loss 5 Findings Consistent with Post-Op Diagnosis Specimens gallbladder and omentum Description of Procedure merda I attest to the content of the Intraoperative Record and any orders documented therein. Any exceptions are noted below.
--- NOTE | 2020-10-27 08:50 | Fluoroscopy Report ---
INTRAOPERATIVE CHOLANGIOGRAM HISTORY: Post cholecystectomy. FLUOROSCOPY TIME: 6 seconds. 4 fluoroscopic spot images of the right upper quadrant. FINDINGS: Fluoroscopy was provided for an intraoperative cholangiogram status post cholecystectomy. C ontrast was injected through the cystic duct remnant. The common bile duct is normal in course and ca liber. There are no filling defects seen within the common bile duct to suggest a retained stone. Co ntrast extends into the small bowel. There is no intrahepatic bile duct dilatation. IMPRESSION: Fluoroscopy provided for an intraoperative cholangiogram status post cholecystectomy. No filling defects within the common bile duct. ACT 112: Negative or not required by law. Electronically signed by: Christian Gonzalez M.D. 10/27/2020 8:48 AM
[2020-10-27] MEDS ORDERED: HYDROmorphone INJ 2 MG/ML SYR/VIAL IV PRN (09:14)
[2020-10-27] MEDS ORDERED: ONDANSETRON INJ 2 MG/ML 2 ML VIAL IV PRN (09:14)
[2020-10-27] MEDS ORDERED: ATROPINE SULFATE 0.1 MG/ML 10ML SYR IV PRN (09:14)
[2020-10-27] MEDS ORDERED: ePHEDrine sulfate 50 MG/ML AMP IV PRN (09:14)
[2020-10-27] MEDS ORDERED: fentaNYL citrate 100 MCG/2 ML VIAL IV PRN (09:14)
[2020-10-27] MEDS ORDERED: METOCLOPRAMIDE HCL INJ 5 MG/ML 2 ML VIAL ONE (09:51)
[2020-10-27] MEDS ORDERED: LIDOCAINE 2% 2 ML VIAL/AMP(20MG/ML) INFIL ONE (09:51)
[2020-10-27] MEDS ORDERED: ONDANSETRON INJ 2 MG/ML 2 ML VIAL ONE (09:51)
[2020-10-27] MEDS ORDERED: DEXAMETHASONE SOD INJ 4 MG/ML VIAL ONE (09:51)
[2020-10-27] MEDS ORDERED: KETOROLAC 30 MG/ML VIAL ONE (09:51)
[2020-10-27] MEDS ORDERED: ROCURONIUM BROMIDE 10 MG/ML 5 ML VIAL IV ONE (09:51)
[2020-10-27] MEDS ORDERED: diphenhydrAMINE 50 MG/ML VIAL ONE (09:51)
[2020-10-27] MEDS ORDERED: PROPOFOL IV EMULSION 10 MG/ML 20 ML VIAL IV ONE (09:51)
[2020-10-27] MEDS: PIPERACILLIN/TAZOBACTAM 3.375 GM in DEXTROSE 5% 100 ML IV SCH (09:53)
[2020-10-27] MEDS ORDERED: LABETALOL HCL IV 5 MG/ML 20ML IV ONE (09:55)
--- NOTE | 2020-10-27 10:00 | Anesthesiology Progress Note ---
Date of Service October 27, 2020 Anesthesia Post Procedure Vital Signs Vital Signs: Temp Pulse Pulse Pulse Resp BP BP 10/27/20 09:35 71 16 139/59 L 10/27/20 09:25 36.6 C 70 16 138/70 10/27/20 09:15 69 16 141/62 H 10/27/20 09:05 68 14 161/76 H 10/27/20 08:55 36.9 C 75 16 177/68 H 10/27/20 06:13 36.8 C 70 18 10/26/20 22:48 36.7 C 60 18 10/26/20 19:50 36.3 C L 63 16 10/26/20 19:15 36.3 C L 63 16 10/26/20 17:30 80 17 173/73 H 10/26/20 17:00 79 14 163/64 H 10/26/20 16:30 74 15 162/68 H 10/26/20 16:00 76 13 163/63 H 10/26/20 15:30 75 18 169/77 H 10/26/20 15:00 82 14 187/69 H 10/26/20 14:30 74 13 179/63 H 10/26/20 14:00 79 19 199/70 H 10/26/20 13:30 83 21 175/68 H 10/26/20 13:08 83 16 169/106 H 10/26/20 12:30 75 21 181/87 H 10/26/20 12:13 10/26/20 11:51 85 18 10/26/20 11:21 37.0 C 79 14 196/74 H BP Pulse Ox 10/27/20 09:35 96 10/27/20 09:25 96 10/27/20 09:15 96 10/27/20 09:05 99 10/27/20 08:55 98 10/27/20 06:13 164/72 H 97 10/26/20 22:48 147/70 H 95 10/26/20 19:50 159/73 H 96 10/26/20 19:15 159/73 H 96 10/26/20 17:30 95 10/26/20 17:00 97 10/26/20 16:30 95 10/26/20 16:00 95 10/26/20 15:30 96 10/26/20 15:00 97 10/26/20 14:30 97 10/26/20 14:00 98 10/26/20 13:30 94 10/26/20 13:08 96 10/26/20 12:30 95 10/26/20 12:13 96 10/26/20 11:51 187/68 H 98 10/26/20 11:21 97 Pain Intensity Right Upper Abdomen: Pain Intensity: 5 Transfer of Care Handoff Completed per policy Notes Mental Status: alert / awake / arousable and participated in evaluation Patient Amnestic to Procedure: Yes Nausea / Vomiting: adequately controlled Pain: adequately controlled Airway Patency, RR, SpO2: stable & adequate BP & HR: stable & adequate Hydration State: stable & adequate Anesthetic Complications: no major complications apparent
[2020-10-27] MEDS ORDERED: PIPERACILLIN/TAZOBACTAM 4.5 GM in DEXTROSE 5% 100 ML IV SCH (17:00)
[2020-10-27] MEDS ORDERED: ATORVASTATIN 40 MG TAB PO SCH (21:00)
--- NOTE | 2020-10-28 10:34 | Discharge Summary ---
Date of Service October 28, 2020 Admission HPI Per Admitting Provider 60 y/o female with RUQ pain that began after eating cereal for breakfast yesterday. She had pain during the day but was eating. Pain was more severe this morning and had some nausea. Came to the ED and symptoms persist despite medication. Avoids spicy foods but no other symptoms prior to this. Principal Diagnosis Acute cholecystitis Discharge Exam Constitutional WD/WN, vitals as above Gastrointestinal (Abdomen) Inspection/Auscultation: + abdominal surgical incision (clean, dry) Percussion/Palpation: abdomen soft Discharge Data Allergies Allergy/AdvReac Type Severity Reaction Status Date / Time No Known Allergies Allergy Verified 10/26/20 14:11 Consultations 10/26/20 15:19 ED Decision to Admit Stat Procedures Performed Operation Date: 10/27/20 07:00 Actual Procedures p Laparoscopic Cholecystectomy with Cholangiogram, resection of infarcted omentum(Not Applicable) - Luis E Tovar MD, FACS Ordered Studies 10/26/20 12:01 US gallbladder Stat 10/26/20 13:20 CT abd pelvis IV con only Stat 10/27/20 07:00 [place] cholangiogram OR Routine Hospital Course (1) Acute cholecystitis: 60 y/o female presented to the ER with RUQ abdominal pain. White count was 13,000, ultrasound showed sludge and gallbladder distention. Bilirubin was slightly elevated at 1.3. She was admitted to the surgical service and laparoscopic cholecystectomy planned for the morning. In the morning bilirubin was 1.6 and she was taken to the OR as planned. Cholangiogram was negative. She was returned to the floor and was able to advance diet and tolerate oral analgesics. She was stable for discharge home in the afternoon. Total Time Total Time Spent Total Time Spent (In Minutes): 15 Discharge Plan Discharge Items Patient Disposition: Home - Self-Care Reason For Visit: RUQ ABDOMINAL PAIN Discharge Diagnosis: laparoscopic cholecystectomy Activity: As commented below Lifting: No more than 10 pounds Bathing Comment: can shower tomorrow Driving/Machine Use: Resume 3 days after discharge Non-emergency contact: Surgeon Call non-emergency contact if: you have any medication questions, your pain is not controlled, you have a fever, your temperature is above 101.5 and your wound has increased redness Follow-up/Referrals: Perlita Samaniego CRNP [Primary Care Provider] - 11/05/20 10:30 am Luis E Tovar MD, FACS [Surgeon] - 11/03/20 9:45 am (Please call to make an appt in 1 week) Diet: Regular Addtl Attending Provider Instructions: Leave steri-strips on until your appt Pending Studies at Discharge: No Stand-Alone Forms: [facility] Ribbit, Smoking Cessation Medications and DC Order Prescriptions: New oxycodone-acetaminophen [Percocet] 5-325 mg tablet 1 - 2 tab PO Q4H PRN (Reason: pain, initial therapy, max 6 daily) Qty: 15 RF: 0 Continued atorvastatin 40 mg tablet 40 mg PO DAILY Qty: 30 RF: 11 calcium citrate 500 mg tablet, effervescent 500 mg PO DAILY RF: 0 omega-3 fatty acids [Fish Oil Concentrate] 1,000 mg capsule 1,000 mg PO DAILY RF: 0 multivitamin [Multiple Vitamins] Tablet 1 tab PO DAILY RF: 0 Discharge Orders: Discharge Order (Routine); Ordered 10/27/20 Ordered By: Fili Monae Admission Data Admit Date/Time: 10/26/20 15:28 Attending Provider: Luis E Tovar Admit Provider: Gayb Babcock Primary Care Provider: Perlita Samaniego Other Providers: Luis E Tovar Other Interventions: Discharge Summary Assessment (RN) Last Done: 10/27/20 14:06 Coding Level of Care Code D/C DAY MANAGEMENT <30 MINS Diagnoses Acute cholecystitis K81.0
== END 2020-10-27 15:22 | disposition home or self-care (01) ==
LOC: 3N 11:13 → ED 11:13 → 3N 19:18